=== PATIENT | male | born 1980 | race American Indian/Alaskan Native ===

== ENCOUNTER 2018-07-23 22:17 | Emergency (ER) | payer OTHER ==
[2018-07-23 22:27] VITALS: BP 132/89
[2018-07-23 22:56] LABS: Basophils # (Auto) 0.1 K/mm3 (0.0-0.1); Basophils % (Auto) 0.7 % (0.0-1.8); Eosinophils # (Auto) 0.1 K/mm3 (0.0-0.4); Eosinophils % (Auto) 0.9 % (0.0-4.3); Hematocrit 39.7 % (35.5-45.6); Hemoglobin 13.3 gm/dl (11.8-15.2); Lymphocytes # (Auto) 1.5 K/mm3 (1.2-5.4); Lymphocytes % (Auto) 16.5 % (13.4-35.0); Mean Corpuscular HGB Conc 34 % (32-34); Mean Corpuscular Volume 93 fl (84-94); Monocytes # (Auto) 0.5 K/mm3 (0.0-0.8); Monocytes % (Auto) 5.6 % (0.0-7.3); Platelet Count 268 K/mm3 (140-440); Red Blood Count 4.28 M/mm3 (3.65-5.03); Red Cell Distribution Width 13.4 % (13.2-15.2)
[2018-07-23 23:12] LABS: BUN/Creatinine Ratio 19; Blood Urea Nitrogen 17 mg/dL (9-20); Calcium 9.8 mg/dL (8.4-10.2); Hemolysis Index 6
--- NOTE | 2018-07-24 02:12 | Emergency Department Report ---
ED Anxiety HPI - General Chief Complaint: Anxiety Stated Complaint: ANXIETY Time Seen by Provider: 07/24/18 00:51 Source: patient, EMS Mode of arrival: Ambulatory - History of Present Illness Initial Comments: Patient reports that he had anxiety attack at work and then prior to arrival. It was reported by EMS that he was hyperventilating and cramping. Patient reports his fingers had Leonidas locked his abdomen had cramped. Patient does admit to a history of anxiety. He denies any chest pain shortness of breathing. 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 He did report that he had facial tingling on the right side. MD Complaint: anxiety -: days(s) (1) Symptoms: palpitations, extremity numbness, perioral numbness/tinglin, sense of impending doom, muscle cramps Place: work Previous History of Same: Yes Severity: severe Quality: intermittant Provoking factors: work/job stress Improves With: deep breaths Worsens With: nothing Associated symptoms: palpitations. denies: chest pain, shortness of breath - Related Data Home Medications: Previous Rx's Medication Instructions Recorded Last Taken Type hydrOXYzine HCL [Atarax] 25 mg PO Q6HR PRN #20 tablet 07/24/18 Unknown Rx Allergies/Adverse Reactions: Allergies Allergy/AdvReac Type Severity Reaction Status Date / Time No Known Allergies Allergy Unverified 07/23/18 22:25 ED Review of Systems ROS: Stated complaint: ANXIETY Other details as noted in HPI ED Past Medical Hx - Past Medical History Previous Medical History?: Yes Hx Psychiatric Treatment: Yes (anxiety) - Surgical History Past Surgical History?: No - Social History Smoking Status: Never Smoker Substance Use Type: Alcohol - Medications Home Medications: Home Medications Medication Instructions Recorded Confirmed Last Taken Type hydrOXYzine HCL [Atarax] 25 mg PO Q6HR PRN #20 tablet 07/24/18 Unknown Rx ED Physical Exam - General Limitations: No Limitations General appearance: alert, in no apparent distress - Head Head exam: Present: atraumatic, normocephalic - Eye Eye exam: Present: normal appearance - ENT ENT exam: Present: mucous membranes moist - Neck Neck exam: Present: normal inspection - Respiratory Respiratory exam: Present: normal lung sounds bilaterally. Absent: respiratory distress - Cardiovascular Cardiovascular Exam: Present: regular rate, normal rhythm. Absent: systolic murmur, diastolic murmur, rubs, gallop - GI/Abdominal GI/Abdominal exam: Present: soft, normal bowel sounds ED Course Vital Signs 07/23/18 22:25 Temperature 97.8 F Pulse Rate 95 H Respiratory 18 Rate Blood Pressure 132/89 O2 Sat by Pulse 100 Oximetry ED Medical Decision Making - Lab Data Result diagrams: 07/23/18 22:34 07/23/18 22:34 Critical care attestation.: If time is entered above; I have spent that time in minutes in the direct care of this critically ill patient, excluding procedure time. ED Disposition Clinical Impression: Anxiety Disposition: DC-01 TO HOME OR SELFCARE Is pt being admited?: No Does the pt Need Aspirin: No Condition: Stable Instructions: Anxiety (ED) Additional Instructions: Please take medication as prescribed. I recommend following up with the health department or your primary care provider. Prescriptions: hydrOXYzine HCL [Atarax] 25 mg PO Q6HR PRN #20 tablet PRN Reason: Anxiety Referrals: MARK RUGGIERO MD [Primary Care Provider] - 3-5 Days [facility] [Outside] - 3-5 Days GARDENIA LEMOS MD [Staff Physician] - 3-5 Days Forms: Work/School Release Form(ED)
== END 2018-07-24 02:35 | disposition home or self-care (01) ==
LOC: ED 22:17
DX: F41.9 Anxiety disorder, unspecified (principal)
CPT/HCPCS: 36415; 80048; 84436; 84443; 85025